=== PATIENT | male | born 1960 | race Two or more races ===

== ENCOUNTER 2017-06-11 01:43 | Emergency (ER) | payer BC, OTHER ==
[~2017-06-11] VITALS: Ht 162.6 cm; Wt 80.7 kg
--- NOTE | 2017-06-11 02:10 | NUR ---
BIB DAUGHTER, RIGHT SHOULDER PAIN S/P SLIP AND FALL X 30 MINS AGO. -LOC. PT AOX3 RR EVEN AND UNLABORED. NO SOB NOTED. NAD NOTED. NO NVD AT THIS TIME. PT GOWNED AND PLACED ON MONITOR WAITING FOR MD CRUZ
--- NOTE | 2017-06-11 02:41 | NUR ---
RADIOLOGY AT BEDSIDE FOR RIGHT SHOULDER XRAY
[2017-06-11] MEDS ORDERED: PROPOFOL 20 ML IV ONE (02:56)
--- NOTE | 2017-06-11 03:32 | NUR ---
PT IS TALKING AND IS AT BASELINE. VSS.
--- NOTE | 2017-06-11 03:46 | NUR ---
PT APPEARS TO BE RESTING COMFORTABLY. PT'S IS AT THE BEDSIDE. PT'S VSS.
--- NOTE | 2017-06-11 03:55 | NUR ---
PT APPEARS TO BE SLEEPING COMFORTABLY, BUT IS EASILY AROUSED. PT PLACED BACK ON 2L O2 VIA NC, DUE TO O2 SAT 92% ON RA.
--- NOTE | 2017-06-11 04:37 | NUR ---
PT IS AWAKE AND AMBULATORY WITH A STEADY GAIT. PT REC'D A REFERRAL TO DR. PACHECO. IV removed. Catheter intact and site benign. Pressure and 4x4 applied to site. No bleeding noted.Patient discharged to home in stable condition. Written and verbal after care instructions given. Patient verbalizes understanding of instruction AND RX. VSS.
[2017-06-11 04:38] VITALS: BP 119/78
== END 2017-06-11 04:51 | disposition home or self-care (01) ==
LOC: ER 01:46
DX: S43.084A Other dislocation of right shoulder joint, initial encounter (principal); W01.0XXA Fall on same level from slipping, tripping and stumbling without subsequent striking against object, initial encounter; Y93.89 Activity, other specified; Y92.89 Other specified places as the place of occurrence of the external cause; Y99.8 Other external cause status
CPT/HCPCS: 23650; 73030 ×2; 99152; 99285; A4606; A6402; J2704; J7030; Z7610

== ENCOUNTER 2017-06-13 15:46 | Emergency (ER) | payer BC, OTHER ==
[~2017-06-13] VITALS: Ht 165.1 cm; Wt 86.2 kg
--- NOTE | 2017-06-13 16:40 | NUR ---
CONSENTS SIGNED FOR CLOSED REDUCTION WITH MODERATE SEDATION ON RIGHT SHOULDER. VEBRALIZES UNDERSTANDING OF THE SAID PROCEDURE. ALL QUESTIONS ANSWERED.
[2017-06-13] MEDS ORDERED: PROPOFOL 40 ML IV ONE (16:47)
[2017-06-13] MEDS ORDERED: PROPOFOL 200 MG/20 ML VIAL IV ONE ×2 (17:00→17:30)
--- NOTE | 2017-06-13 17:15 | NUR ---
CLOSED REDUCTION UNDER MODERATE SEDATION DONE BY DR. JEFF, RT AT . PROCEDURE WELL TOLERATED. VSS. PT AAOX3. WILL CLOSE MONITOR.
[2017-06-13 17:49] VITALS: BP 120/88
--- NOTE | 2017-06-13 17:50 | NUR ---
IV removed. Catheter intact and site benign. Pressure and 4x4 applied to site. No bleeding noted.Patient discharged to home in stable condition. Written and verbal after care instructions given. Patient verbalizes understanding of instruction.
== END 2017-06-13 17:50 | disposition home or self-care (01) ==
LOC: ER 15:48
DX: S43.014A Anterior dislocation of right humerus, initial encounter (principal); X58.XXXA Exposure to other specified factors, initial encounter; Y93.89 Activity, other specified; Y92.89 Other specified places as the place of occurrence of the external cause; Y99.8 Other external cause status
CPT/HCPCS: 23650; 73020; 73030; 99152; 99285; A4606; J2704; J7030; Z7610

== ENCOUNTER 2017-07-01 08:24 | Outpatient (CLI) | payer BC, OTHER | END 2017-07-02 23:59 | disposition home or self-care (01) | LOC: MRI 08:24 | PROVIDERS: ATTEND Specialist | DX: M75.101 Unspecified rotator cuff tear or rupture of right shoulder, not specified as traumatic (principal); M25.411 Effusion, right shoulder; M19.011 Primary osteoarthritis, right shoulder | CPT/HCPCS: 73221-TC ==

== ENCOUNTER 2017-08-30 10:30 | Outpatient (CLI) | payer BC ==
[2017-08-30 11:38] LABS: APPEARANCE,URINE CLEAR (CLEAR); BILIRUBIN,URINE NEGATIVE (NEGATIVE); BLOOD, URINE NEGATIVE Ery/uL (NEGATIVE); COLOR,URINE YELLOW (YELLOW); KETONES,URINE NEGATIVE (NEGATIVE); LEUKOCYTE ESTERASE ,URINE NEGATIVE (NEGATIVE); NITRITE, URINE NEGATIVE (NEGATIVE); PH,URINE 7.5 (5.0-8.0); PROTEIN,URINE NEGATIVE (NEGATIVE); UGLUCOSE NEGATIVE (NEGATIVE); UROBILINOGEN,URINE 0.2 EU/dL (0.2)
[2017-08-30 11:51] LABS: BASOPHILS % (AUTO) 0.6 % (0.0-2.0); EOSINOPHILS % (AUTO) 0.8 % (0.0-6.0); HEMATOCRIT 49 % (39-51); HEMOGLOBIN 16.8 g/dL (13.5-17.5); LYMPHOCYTES # (AUTO) 1.4 /CMM (0.8-4.8); LYMPHOCYTES % (AUTO) 37.2 % (20.0-44.0); MEAN CORPUSCULAR HEMOGLOBIN 29 PG (26.0-33.0); MEAN CORPUSCULAR HGB CONC 34 g/dl (31.0-36.0); MEAN CORPUSCULAR VOLUME 86 fL (80-96); MONOCYTES # (AUTO) 0.3 /CMM (0.1-1.30); MONOCYTES % (AUTO) 7.3 % (2.0-12.0); NEUTROPHILS # (AUTO) 2.1 /CMM (1.8-8.9); NEUTROPHILS % (AUTO) 54.1 % (43.0-81.0); PLATELET COUNT (AUTO) 193 /CMM (150-450); RDW COEFFICIENT OF VARIATION 14.3 (11.5-15.0); RED BLOOD CELL COUNT(AUTO) 5.71 MIL/uL (4.5-6.0); WHITE BLOOD COUNT (AUTO) 3.8 K/uL (4.3-11.0)
[2017-08-30 11:58] LABS: INR 0.94 (0.87-1.13)
[2017-08-30 12:47] LABS: ALBUMIN 4.3 g/dL (3.4-5.0); BILIRUBIN,TOTAL 0.4 mg/dL (0.2-1.0); CALCIUM, SERUM 9.4 mg/dL (8.5-10.1); CREATININE 0.8 mg/dL (0.6-1.3); POTASSIUM 4.2 mmol/L (3.5-5.1); TOTAL PROTEIN, SERUM 7.9 g/dL (6.4-8.2)
== END 2017-08-30 23:59 | disposition home or self-care (01) ==
LOC: LAB 10:30
PROVIDERS: ATTEND Family Medicine
DX: Z01.818 Encounter for other preprocedural examination (principal); I70.0 Atherosclerosis of aorta; I51.7 Cardiomegaly; M47.894 Other spondylosis, thoracic region
CPT/HCPCS: 36415; 71046; 80053-TC; 81000-TC; 85025-TC; 85610-TC; 85730-TC

== ENCOUNTER 2017-10-24 09:48 | Outpatient (CLI) | payer BC ==
[2017-10-24 10:20] LABS: BASOPHILS % (AUTO) 0.4 % (0.0-2.0); EOSINOPHILS % (AUTO) 0.6 % (0.0-6.0); HEMATOCRIT 46 % (39-51); HEMOGLOBIN 15.5 g/dL (13.5-17.5); LYMPHOCYTES # (AUTO) 1.4 /CMM (0.8-4.8); LYMPHOCYTES % (AUTO) 35.8 % (20.0-44.0); MEAN CORPUSCULAR HGB CONC 34 g/dl (31.0-36.0); MEAN CORPUSCULAR VOLUME 86 fL (80-96); MONOCYTES # (AUTO) 0.4 /CMM (0.1-1.30); MONOCYTES % (AUTO) 9.2 % (2.0-12.0); NEUTROPHILS # (AUTO) 2.2 /CMM (1.8-8.9); PLATELET COUNT (AUTO) 181 /CMM (150-450); RDW COEFFICIENT OF VARIATION 13.8 (11.5-15.0); RED BLOOD CELL COUNT(AUTO) 5.36 MIL/uL (4.5-6.0)
[2017-10-24 10:21] LABS: APPEARANCE,URINE CLEAR (CLEAR); BILIRUBIN,URINE NEGATIVE (NEGATIVE); BLOOD, URINE TRACE Ery/uL (NEGATIVE); COLOR,URINE YELLOW (YELLOW); KETONES,URINE NEGATIVE (NEGATIVE); LEUKOCYTE ESTERASE ,URINE NEGATIVE (NEGATIVE); NITRITE, URINE NEGATIVE (NEGATIVE); PROTEIN,URINE NEGATIVE (NEGATIVE); UGLUCOSE NEGATIVE (NEGATIVE); UROBILINOGEN,URINE 0.2 EU/dL (0.2)
[2017-10-24 10:37] LABS: INR 0.93 (0.87-1.13)
[2017-10-24 10:39] LABS: BACTERIA,URINE Rare /HPF (None Seen); RBC,URINE 0-2 /HPF (0-2); SQUAMOUS EPITHELIAL CELL,UR Rare /HPF (None Seen); WBC,URINE 0-2 /HPF (0-3)
[2017-10-24 10:42] LABS: BILIRUBIN,TOTAL 0.4 mg/dL (0.2-1.0); CREATININE 0.9 mg/dL (0.6-1.3); POTASSIUM 4.1 mmol/L (3.5-5.1); TOTAL PROTEIN, SERUM 7.2 g/dL (6.4-8.2)
[2017-11-02] MEDS ORDERED: HYDR-552 PO (15:46)
[2017-11-02] MEDS ORDERED: ONDA4TAB5 PO (15:46)
[2017-11-02] MEDS ORDERED: DOCU-141 PO (15:46)
== END 2017-10-24 23:59 | disposition home or self-care (01) ==
LOC: LAB 09:48
PROVIDERS: ATTEND Family Medicine
DX: Z01.818 Encounter for other preprocedural examination (principal)
CPT/HCPCS: 36415; 80053-TC; 81000-TC; 85025-TC; 85610-TC; 85730-TC

== ENCOUNTER 2017-11-01 10:33 | Inpatient (IN) | payer BC ==
[~2017-11-01] VITALS: Ht 162.6 cm; Wt 81.6 kg
[2017-11-01] MEDS ORDERED: BUPIVACAINE MPF 0.75% 30 ML VIAL IJ ONE (10:34)
[2017-11-01] MEDS ORDERED: BACITRACIN 50000 UNITS/VIAL ONE (12:45)
[2017-11-01] MEDS ORDERED: FENTANYL PF 100MCG/2ML AMPUL ONE ×2 (12:47)
[2017-11-01] MEDS ORDERED: SUCCINYLCHOLINE CHLORIDE 20 MG/ML VIAL ONE (12:48)
[2017-11-01] MEDS ORDERED: ROCURONIUM BROMIDE 50 MG/5 ML ONE (12:48)
[2017-11-01] MEDS ORDERED: MIDAZOLAM HCL 2 MG/2ML VIAL ONE (12:49)
[2017-11-01] MEDS ORDERED: BUPIVACAINE 0.25% 75 MG/30 ML VIAL IJ ONE (13:00)
[2017-11-01] MEDS ORDERED: TRANEXAMIC ACID 3,000 MG in SODIUM CHLORIDE IRRIG SOLUTION 70 ML IR ONE (14:00)
[2017-11-01] MEDS ORDERED: oxyCODONE IR immediate release 5 MG PO PRN (15:30)
[2017-11-01] MEDS ORDERED: FENTANYL PF 100MCG/2ML AMPUL IV PRN (15:30)
--- NOTE | 2017-11-01 16:30 | NUR ---
RN MS NOTES RECEIVED PATIENT FROM OR IN STABLE CONDITION, RESPIRATIONS EVEN AND UNLABORED, AWAKE ALERT AND ORIENTED X 4, LEFT HAND IV SITE INTACT AND PATENT, NO REDNESS, NO INFILTRATION PRESENT, DENIES ANY PAIN AND OR DISCOMFORT AT THIS TIME, RIGHT SHOULDER INTACT DRY, NO BLEEDING.MD AWARE OF ADMISSION WILL CARRY OUT ADMITTING ORDERS, SAFETY MEASURES IN PLACE ORIENTED TO ROOM AND CALL LIGHT , WILL CONTINUE TO MONITOR.
[2017-11-01 18:00] VITALS: BP 119/74
--- NOTE | 2017-11-01 19:46 | NUR ---
RN MS NOTES PATIENT WITH RESPIRATIONS EVEN AND UNLABORED, AWAKE ALERT AND ORIENTED X 4, LEFT HAND IV SITE INTACT AND PATENT, NO REDNESS, NO INFILTRATION PRESENT, DENIES ANY PAIN AND OR DISCOMFORT AT THIS TIME, RIGHT SHOULDER INTACT DRY, NO BLEEDING., SAFETY MEASURES IN PLACE ORIENTED TO ROOM AND CALL LIGHT , WILL CONTINUE TO MONITOR ENDORSE TO NEXT SHIFT FOR CONTINUITY OF CARE.
[2017-11-01 20:00] VITALS: BP 153/84
[2017-11-01] MEDS: CEFAZOLIN SODIUM 1 GM in IV SODIUM CHLORIDE 0.9% 50 ML IV SCH (21:19)
[2017-11-01 22:00] VITALS: BP 153/84
--- NOTE | 2017-11-02 02:46 | NUR ---
TL MS NOTES RECEIVED PATIENT AWAKE AND ALERT IN BED. RESPIRATIONS EVEN AND UNLABORED. LEFT HAND IV SITE INTACT AND PATENT, NO REDNESS, NO INFILTRATION PRESENT, DENIES ANY PAIN AND OR DISCOMFORT AT THIS TIME, RIGHT SHOULDER INTACT DRY, NO BLEEDING. COLD ICE PACK ON RIGHT SHOULDER. SAFETY MEASURES IN PLACE. WILL CONTINUE TO MONITOR. Addendum: 11/02/17 at 0252 by HANDY CARIAS RN TIME FOR OPENING NOTE 11/01
[2017-11-02] MEDS: CEFAZOLIN SODIUM 1 GM in IV SODIUM CHLORIDE 0.9% 50 ML IV SCH ×2 (05:23→14:24)
--- NOTE | 2017-11-02 07:05 | NUR ---
RN NOTES PT IS RESTING IN BED, AWAKE AND ALERT. PT ON RA, RESPIRATIONS ARE EVEN AND UNLABORED. IV ON L HAND INTACT AND SL. SAFETY MEASURES ARE IN PLACE, CALL LIGHT IS IN REACH. WILL CONTINUE TO MONITOR.
[2017-11-02 08:00] VITALS: BP 114/75
[2017-11-02] MEDS ORDERED: ONDA4TAB5 PO (15:46)
[2017-11-02] MEDS ORDERED: HYDR-552 PO (15:46)
[2017-11-02] MEDS ORDERED: DOCU-141 PO (15:46)
[2017-11-02] MEDS ORDERED: MAGNESIUM CITRATE 296 ML BOTTLE PO ONE (16:00)
--- NOTE | 2017-11-02 16:00 | NUR ---
RN NOTES PT WAS DISCHARGED HOME IN STABLE CONDITION, ACCOMPANIED BY HIS . IV AND ID BAND WERE REMOVED. BELONGINGS WERE RETURNED TO PT. PT EDUCATED ON NEW PRESCRIPTIONS TO HAVE FILLED AT PHARMACY AND TO FOLLOW UP WITH PCP WITHIN 1-2 WEEKS OF DISCHARGE. PT VERBALIZED UNDERSTANDING AND SAID HE WOULD MAKE HIS FOLLOW UP APPOINTMENT ON HIS OWN. DISCHARGE PAPERS WERE SIGNED AND PT WAS ABLE TO AMBULATE TO THE CAR.
== END 2017-11-02 16:15 | disposition home or self-care (01) | DRG 483 ==
LOC: DS 10:33 → MED 17:45
PROVIDERS: ADMIT Nurse Practitioner Acute Care; ATTEND Nurse Practitioner Acute Care
PROC: 0RRJ00Z Replacement of Right Shoulder Joint with Reverse Ball and Socket Synthetic Substitute, Open Approach (ICD-10-PCS; principal; 2017-11-01 13:25)
DX: M12.9 Arthropathy, unspecified (principal); E66.9 Obesity, unspecified; Z68.30 Body mass index [BMI] 30.0-30.9, adult; K59.00 Constipation, unspecified; Z83.3 Family history of diabetes mellitus; Z82.49 Family history of ischemic heart disease and other diseases of the circulatory system; Z80.8 Family history of malignant neoplasm of other organs or systems; M25.811 Other specified joint disorders, right shoulder; M75.101 Unspecified rotator cuff tear or rupture of right shoulder, not specified as traumatic; M75.21 Bicipital tendinitis, right shoulder
CPT/HCPCS: 36415; 73020; 86850-TC; 86921-TC; 87081-TC; A4216; A4217; A4565; A6402; J0330; J0690; J2250; J2405; J2704; J3010; J3490; J7050

== ENCOUNTER 2019-07-30 14:34 | Outpatient (CLI) | payer BC ==
[~2019-07-30 14:34] MED LIST: DOCU-141 PO; HYDR-4384 PO; ONDA4TAB5 PO
== END 2019-07-30 23:59 | disposition home or self-care (01) ==
LOC: CT 14:34
PROVIDERS: ATTEND Family Medicine
DX: I65.29 Occlusion and stenosis of unspecified carotid artery (principal); R51 Headache; R22.1 Localized swelling, mass and lump, neck
CPT/HCPCS: 70450-TC; 71046

== ENCOUNTER 2020-07-23 10:38 | Emergency (ER) | payer BC ==
[~2020-07-23] VITALS: Ht 165.1 cm; Wt 86.2 kg
--- NOTE | 2020-07-23 11:15 | NUR ---
C/O COUGH AND CHEST TIGHTNESS X 3 DAYS, -SOB, EXPOSED TO + COVID. PATIENT A/OX4, AMBULATORY WITH STEADY GAIT. BREATHING EVEN AND UNLABORED, DENIES SOB. PATIENT IN TRIAGE ROOM. DR. CUNNINGHAM AWARE.
--- NOTE | 2020-07-23 11:29 | NUR ---
EMT AT BEDSIDE FOR EKG.
--- NOTE | 2020-07-23 12:36 | NUR ---
COVID SWAB SENT. PATIENT A/OX4, BREATHING EVEN AND UNLABORED, NO SOB NOTED. NEEDS ATTENDED. KEPT COMFORTABLE. Patient discharged to home in stable condition. Written and verbal after care instructions given. Patient verbalizes understanding of instruction.
[2020-07-23 12:37] VITALS: BP 152/83
== END 2020-07-23 12:38 | disposition home or self-care (01) ==
LOC: ER 10:42
DX: U07.1 COVID-19 (principal); R03.0 Elevated blood-pressure reading, without diagnosis of hypertension; I44.5 Left posterior fascicular block
CPT/HCPCS: 93005; 99284; C9803; U0003

== ENCOUNTER 2021-01-20 10:12 | Outpatient (CLI) | payer BC | END 2021-01-20 23:59 | disposition home or self-care (01) | LOC: MRI 10:12 | PROVIDERS: ATTEND Family Medicine | DX: S83.231A Complex tear of medial meniscus, current injury, right knee, initial encounter (principal); S83.242A Other tear of medial meniscus, current injury, left knee, initial encounter; M25.461 Effusion, right knee; M71.22 Synovial cyst of popliteal space [Baker], left knee; M71.21 Synovial cyst of popliteal space [Baker], right knee; X58.XXXA Exposure to other specified factors, initial encounter; Y93.89 Activity, other specified; Y92.89 Other specified places as the place of occurrence of the external cause; Y99.8 Other external cause status | CPT/HCPCS: 73721-TC ==

== ENCOUNTER 2021-02-23 08:10 | Outpatient (CLI) | payer BC ==
[2021-02-23 09:55] LABS: BASOPHILS % (AUTO) 0.2 % (0.0-2.0); EOSINOPHILS % (AUTO) 0.4 % (0.0-6.0); HEMATOCRIT 45 % (39-51); LYMPHOCYTES # (AUTO) 1.7 K/uL (0.8-4.8); LYMPHOCYTES % (AUTO) 24.6 % (20.0-44.0); MEAN CORPUSCULAR HGB CONC 34 g/dl (31.0-36.0); MEAN CORPUSCULAR VOLUME 87 fL (80-96); MONOCYTES # (AUTO) 0.5 K/uL (0.1-1.30); MONOCYTES % (AUTO) 7.7 % (2.0-12.0); NEUTROPHILS # (AUTO) 4.6 K/uL (1.8-8.9); NEUTROPHILS % (AUTO) 67.1 % (43.0-81.0); PLATELET COUNT (AUTO) 166 K/uL (150-450); RED BLOOD CELL COUNT(AUTO) 5.14 MIL/uL (4.5-6.0); WHITE BLOOD COUNT (AUTO) 6.8 K/uL (4.3-11.0)
[2021-02-23 10:19] LABS: ALBUMIN 3.5 g/dL (3.4-5.0); BILIRUBIN,TOTAL 0.6 mg/dL (0.2-1.0); CALCIUM, SERUM 8.4 mg/dL (8.5-10.1); CREATININE 0.9 mg/dL (0.6-1.3); TOTAL PROTEIN, SERUM 6.4 g/dL (6.4-8.2)
[2021-02-23 10:29] LABS: THYROID STIMULATING HORMONE 1.835 uIU/mL (0.358-3.74)
[2021-02-23 10:46] LABS: BILIRUBIN,URINE NEGATIVE (NEGATIVE); COLOR,URINE YELLOW (YELLOW); LEUKOCYTE ESTERASE ,URINE NEGATIVE (NEGATIVE); NITRITE, URINE NEGATIVE (NEGATIVE); PROTEIN,URINE NEGATIVE (NEGATIVE); UGLUCOSE NEGATIVE (NEGATIVE); UROBILINOGEN,URINE 0.2 EU/dL (0.2)
== END 2021-02-23 23:59 | disposition home or self-care (01) ==
LOC: LAB 08:10
PROVIDERS: ATTEND Family Medicine
DX: I10 Essential (primary) hypertension (principal); E78.2 Mixed hyperlipidemia; E55.9 Vitamin D deficiency, unspecified
CPT/HCPCS: 36415; 80053-TC; 80061-TC; 82306; 84439-TC; 84443-TC; 85025-TC

== ENCOUNTER 2021-04-21 09:58 | Outpatient (CLI) | payer BC ==
[2021-04-21 11:05] LABS: BASOPHILS % (AUTO) 0.7 % (0.0-2.0); EOSINOPHILS % (AUTO) 0.7 % (0.0-6.0); HEMATOCRIT 47 % (39-51); HEMOGLOBIN 15.5 g/dL (13.5-17.5); LYMPHOCYTES # (AUTO) 1.7 K/uL (0.8-4.8); LYMPHOCYTES % (AUTO) 32.3 % (20.0-44.0); MEAN CORPUSCULAR HGB CONC 33 g/dl (31.0-36.0); MEAN CORPUSCULAR VOLUME 88 fL (80-96); MONOCYTES # (AUTO) 0.4 K/uL (0.1-1.30); MONOCYTES % (AUTO) 7.5 % (2.0-12.0); NEUTROPHILS # (AUTO) 3.1 K/uL (1.8-8.9); NEUTROPHILS % (AUTO) 58.8 % (43.0-81.0); PLATELET COUNT (AUTO) 190 K/uL (150-450); RED BLOOD CELL COUNT(AUTO) 5.35 MIL/uL (4.5-6.0); WHITE BLOOD COUNT (AUTO) 5.2 K/uL (4.3-11.0)
[2021-04-21 11:14] LABS: BILIRUBIN,URINE NEGATIVE (NEGATIVE); COLOR,URINE YELLOW (YELLOW); LEUKOCYTE ESTERASE ,URINE NEGATIVE (NEGATIVE); NITRITE, URINE NEGATIVE (NEGATIVE); PROTEIN,URINE NEGATIVE (NEGATIVE); UGLUCOSE NEGATIVE (NEGATIVE); UROBILINOGEN,URINE 0.2 EU/dL (0.2)
[2021-04-21 11:26] LABS: BILIRUBIN,TOTAL 0.4 mg/dL (0.2-1.0); CALCIUM, SERUM 8.4 mg/dL (8.5-10.1); CREATININE 0.8 mg/dL (0.6-1.3); POTASSIUM 4.1 mmol/L (3.5-5.1); TOTAL PROTEIN, SERUM 7.1 g/dL (6.4-8.2)
[2021-04-21 12:01] LABS: BACTERIA,URINE Rare /HPF (None Seen); SQUAMOUS EPITHELIAL CELL,UR Rare /HPF (None Seen)
== END 2021-04-21 23:59 | disposition home or self-care (01) ==
LOC: RAD 09:58
PROVIDERS: ATTEND Family Medicine
DX: Z01.818 Encounter for other preprocedural examination (principal); I51.7 Cardiomegaly; I70.0 Atherosclerosis of aorta; J90 Pleural effusion, not elsewhere classified
CPT/HCPCS: 36415; 71046; 80053-TC; 81001; 85025-TC; 85730-TC

== ENCOUNTER 2021-04-24 11:57 | Outpatient (CLI) | payer BC | END 2021-04-24 23:59 | disposition home or self-care (01) | LOC: LAB 11:57 | PROVIDERS: ATTEND Specialist | DX: Z01.812 Encounter for preprocedural laboratory examination (principal); Z20.822 Contact with and (suspected) exposure to COVID-19 | CPT/HCPCS: C9803; U0003 ==

== ENCOUNTER 2021-04-29 06:58 | Day surgery (SDC) | payer BC ==
[~2021-04-29 06:58] MED LIST changes: +LIDOCAINE 1% INJ 50 ML MDV IJ ONE
[2021-04-29] MEDS ORDERED: methylPREDNISolone ACETATE 80 MG/ML VIAL ONE (08:38)
[2021-04-29] MEDS ORDERED: HYDROMORPHONE 1 MG/1 ML DISP.SYRIN ONE (09:21)
== END 2021-04-29 11:00 | disposition home or self-care (01) ==
LOC: DS 06:58
PROVIDERS: ATTEND Specialist
DX: S83.231A Complex tear of medial meniscus, current injury, right knee, initial encounter (principal); X58.XXXA Exposure to other specified factors, initial encounter; Y93.89 Activity, other specified; Y92.89 Other specified places as the place of occurrence of the external cause; Y99.8 Other external cause status; M94.261 Chondromalacia, right knee; E66.01 Morbid (severe) obesity due to excess calories; I10 Essential (primary) hypertension; Z98.890 Other specified postprocedural states; Z79.899 Other long term (current) drug therapy
CPT/HCPCS: 29881; A4217; A6253; J0690; J1040; J1100; J1170; J1885; J2405; J2704; J3490 ×2; J7030

== ENCOUNTER 2022-07-11 12:47 | Emergency (ER) | payer BC, OTHER ==
[~2022-07-11] VITALS: Ht 162.6 cm; Wt 84.8 kg
[~2022-07-11 12:47] MED LIST changes: -LIDOCAINE 1% INJ 50 ML MDV IJ ONE
--- NOTE | 2022-07-11 13:21 | NUR ---
blood sample obtained by lab
--- NOTE | 2022-07-11 13:21 | NUR ---
covid and influenza swab taken
[2022-07-11 13:27] LABS: BASOPHILS % (AUTO) 0.4 % (0.0-2.0); EOSINOPHILS % (AUTO) 0.7 % (0.0-6.0); HEMATOCRIT 46 % (39-51); LYMPHOCYTES # (AUTO) 1.8 K/uL (0.8-4.8); LYMPHOCYTES % (AUTO) 21.7 % (20.0-44.0); MEAN CORPUSCULAR HGB CONC 33 g/dl (31.0-36.0); MEAN CORPUSCULAR VOLUME 85 fL (80-96); MONOCYTES # (AUTO) 0.9 K/uL (0.1-1.30); MONOCYTES % (AUTO) 10.8 % (2.0-12.0); NEUTROPHILS # (AUTO) 5.6 K/uL (1.8-8.9); NEUTROPHILS % (AUTO) 66.4 % (43.0-81.0); PLATELET COUNT (AUTO) 245 K/uL (150-450); RED BLOOD CELL COUNT(AUTO) 5.35 MIL/uL (4.5-6.0); WHITE BLOOD COUNT (AUTO) 8.4 K/uL (4.3-11.0)
[2022-07-11 13:35] LABS: CALCIUM, SERUM 9.2 mg/dL (8.5-10.1); POTASSIUM 3.7 mmol/L (3.5-5.1)
[2022-07-11 13:41] LABS: ALBUMIN 3.8 g/dL (3.4-5.0); BILIRUBIN,DIRECT 0.2 mg/dL (0.0-0.2); BILIRUBIN,TOTAL 0.5 mg/dL (0.2-1.0); TOTAL PROTEIN, SERUM 7.7 g/dL (6.4-8.2)
--- NOTE | 2022-07-11 15:15 | NUR ---
Note undone in EDM - 07/11/22 at 1520 by TYLOR IV removed. Catheter intact and site benign. Pressure and 4x4 applied to site. No bleeding noted.
[2022-07-11] MEDS ORDERED: ACET325C7 PO (15:16)
--- NOTE | 2022-07-11 15:17 | NUR ---
Patient discharged to home in stable condition. Written and verbal after care instructions given. Patient verbalizes understanding of instruction.
[2022-07-11 15:18] VITALS: BP 142/88
== END 2022-07-11 15:19 | disposition home or self-care (01) ==
LOC: ER 12:50
DX: B34.9 Viral infection, unspecified (principal); Z20.822 Contact with and (suspected) exposure to COVID-19; I10 Essential (primary) hypertension
CPT/HCPCS: 99284; 71045; 87426; 87804; 85025; 80048; 80076; 36415; C9803

== ENCOUNTER 2023-01-27 08:02 | Outpatient (CLI) | payer BC, OTHER ==
[~2023-01-27 08:02] MED LIST changes: +ACET325C7 PO
[2023-01-27 09:09] LABS: BASOPHILS % (AUTO) 0.6 % (0.0-2.0); EOSINOPHILS % (AUTO) 0.9 % (0.0-6.0); HEMATOCRIT 47 % (39-51); HEMOGLOBIN 15.5 g/dL (13.5-17.5); LYMPHOCYTES # (AUTO) 1.8 K/uL (0.8-4.8); LYMPHOCYTES % (AUTO) 37.5 % (20.0-44.0); MEAN CORPUSCULAR HGB CONC 33 g/dl (31.0-36.0); MEAN CORPUSCULAR VOLUME 86 fL (80-96); MONOCYTES # (AUTO) 0.4 K/uL (0.1-1.30); MONOCYTES % (AUTO) 7.6 % (2.0-12.0); NEUTROPHILS # (AUTO) 2.5 K/uL (1.8-8.9); NEUTROPHILS % (AUTO) 53.4 % (43.0-81.0); PLATELET COUNT (AUTO) 198 K/uL (150-450); RED BLOOD CELL COUNT(AUTO) 5.49 MIL/uL (4.5-6.0); WHITE BLOOD COUNT (AUTO) 4.7 K/uL (4.3-11.0)
[2023-01-27 10:02] LABS: THYROID STIMULATING HORMONE 0.899 uIU/mL (0.358-3.74); URIC ACID 5.3 mg/dL (2.6-7.2)
[2023-01-27 10:16] LABS: ALBUMIN 3.9 g/dL (3.4-5.0); BILIRUBIN,TOTAL 0.5 mg/dL (0.2-1.0); CALCIUM, SERUM 9.2 mg/dL (8.5-10.1); CREATININE 0.8 mg/dL (0.6-1.3); POTASSIUM 4.1 mmol/L (3.5-5.1); TOTAL PROTEIN, SERUM 7.2 g/dL (6.4-8.2)
== END 2023-01-27 23:59 | disposition home or self-care (01) ==
LOC: LAB 08:02
PROVIDERS: ATTEND Family Medicine
DX: M25.562 Pain in left knee (principal); E78.2 Mixed hyperlipidemia; J98.4 Other disorders of lung; Z96.611 Presence of right artificial shoulder joint; Z79.899 Other long term (current) drug therapy; R22.1 Localized swelling, mass and lump, neck
CPT/HCPCS: 36415; 71046; 73562; 80053-TC; 80061-TC; 82306; 82607-TC; 82728-TC; 83540-TC; 84439-TC; 84443-TC; 84481; 84550-TC; 85025-TC

== ENCOUNTER 2023-02-17 13:38 | Outpatient (CLI) | payer BC, OTHER | END 2023-02-17 23:59 | disposition home or self-care (01) | LOC: MRI 13:38 | PROVIDERS: ATTEND Family Medicine | DX: S83.242A Other tear of medial meniscus, current injury, left knee, initial encounter (principal); M17.12 Unilateral primary osteoarthritis, left knee; M22.42 Chondromalacia patellae, left knee; M25.862 Other specified joint disorders, left knee; M25.462 Effusion, left knee; M25.562 Pain in left knee; X58.XXXA Exposure to other specified factors, initial encounter; Y93.89 Activity, other specified; Y92.89 Other specified places as the place of occurrence of the external cause; Y99.8 Other external cause status | CPT/HCPCS: 73721-TC ==

== ENCOUNTER 2023-05-18 07:31 | Day surgery (SDC) | payer BC, OTHER ==
[~2023-05-18 07:31] MED LIST changes: +ANESTHESIA TRAY IN PYXIS 1 EA TRAY MC ONE; +LIDOCAINE HCL/MPF 1% 30 ML VIAL IJ ONE; +methylPREDNISolone ACETATE 80 MG/ML VIAL ONE
[2023-05-18] MEDS ORDERED: FENTANYL PF 250MCG/5ML AMPUL ONE (09:08)
[2023-05-18] MEDS ORDERED: MIDAZOLAM HCL 2 MG/2ML VIAL ONE (09:09)
[2023-05-18] MEDS ORDERED: HYDROMORPHONE INJ 2 MG/ML DISP.SYRIN ONE (09:09)
[2023-05-18] MEDS ORDERED: FAMOTIDINE/PF INJ 20 MG/2 ML VIAL IV ONE (09:10)
[2023-05-18] MEDS ORDERED: HYDROCODONE/APAP 5/325MG TABLET ONE (14:13)
[2023-05-18] MEDS ORDERED: HYDROCODONE/APAP 5/325MG TABLET PO PRN (15:00)
== END 2023-05-18 15:00 | disposition home or self-care (01) ==
LOC: DS 07:31
PROVIDERS: ATTEND Specialist
DX: S83.242A Other tear of medial meniscus, current injury, left knee, initial encounter (principal); M94.262 Chondromalacia, left knee; J45.909 Unspecified asthma, uncomplicated; E78.00 Pure hypercholesterolemia, unspecified; I10 Essential (primary) hypertension; X58.XXXA Exposure to other specified factors, initial encounter; Y93.89 Activity, other specified; Y92.89 Other specified places as the place of occurrence of the external cause; Y99.8 Other external cause status
CPT/HCPCS: 29881; A4217; A6253; J0690; J1040; J1170; J2250; J2405; J2704; J2765; J3010; J3490; J7030